=== PATIENT | female | born 1945 | race Caucasian/White ===

== ENCOUNTER 2022-10-08 07:31 | Emergency (ER) | payer OTHER ==
[~2022-10-08] VITALS: Ht 157.5 cm; Wt 68.0 kg
[2022-10-08 07:39] VITALS: BP_SYST 151
--- NOTE | 2022-10-08 07:57 | NUR ---
PT TAKEN TO C/T SCAN AT THIS TIME.
[2022-10-08] MEDS ORDERED: IBUPROFEN 600 MG TABLET PO ONE (08:00)
--- NOTE | 2022-10-08 08:15 | NUR ---
PT BACK FROM CT SCAN AND PLACED ON MONITOR.
--- NOTE | 2022-10-08 08:46 | NUR ---
MOTRIN PO GIVEN AND TOLERATED WELL.
[2022-10-08] MEDS ORDERED: ACYC-133 PO ×3 (08:53→09:07)
[2022-10-08] MEDS ORDERED: NAPR-688 PO ×3 (08:53→09:07)
[2022-10-08] MEDS ORDERED: CEPH-548 PO ×3 (08:53→09:07)
--- NOTE | 2022-10-08 09:00 | NUR ---
DR. HINTON AT BEDSIDE TO POC.
--- NOTE | 2022-10-08 09:18 | NUR ---
Patient given written and verbal discharge instructions and verbalizes understanding. ER MD discussed with patient the results and treatment provided. Patient in stable condition. ID arm band removed. IV catheter removed intact and dressing applied, no active bleeding. Rx of ACYCLOVIR, ROCEPHIN, NAPROXEN given. Patient educated on pain management and to follow up with PMD. Pain Scale 0/10. Opportunity for questions provided and answered. Medication side effect fact sheet provided.
[2022-10-08 09:32] VITALS: BP_SYST 134
--- NOTE | 2022-10-08 09:40 | NUR ---
PATIENT TAKEN OUT TO UBER BY STUDENTS
== END 2022-10-08 09:18 | disposition home or self-care (01) ==
LOC: SED 07:31 → EDBD 07:31 → SED 09:18
DX: L03.211 Cellulitis of face (principal); R22.0 Localized swelling, mass and lump, head; I10 Essential (primary) hypertension; Z79.899 Other long term (current) drug therapy
CPT/HCPCS: 70450-TC; 70486-TC; 76376; 99284

== ENCOUNTER 2023-10-24 07:43 | Emergency (ER) | payer OTHER ==
[~2023-10-24] VITALS: Ht 160 cm; Wt 82.6 kg
[~2023-10-24 07:43] MED LIST: ACYC-133 PO; CEPH-548 PO; NAPR-688 PO
[2023-10-24 08:04] VITALS: BP_SYST 164; PULSE 105; RESP 16; TEMP 98.6; O2SAT 96
[2023-10-24 08:37] LABS: BILIRUBIN,URINE 1+ (NEGATIVE); COLOR,URINE YELLOW (YELLOW); GLUCOSE,URINE NEGATIVE (NEGATIVE); KETONES,URINE TRACE (NEGATIVE); LEUKOCYTE ESTERASE ,URINE 1+ (NEGATIVE); NITRITE, URINE POSITIVE (NEGATIVE); PROTEIN URINE 1+ (NEGATIVE)
[2023-10-24 08:43] LABS: BASOPHILS # (AUTO) 0.1 K/uL (0.0-0.2); BASOPHILS % (AUTO) 1.2 % (0.0-2.0); EOSINOPHILS # (AUTO) 0.1 K/uL (0.0-0.4); EOSINOPHILS % (AUTO) 1.6 % (0.0-4.0); HEMATOCRIT 35.6 % (36-48); HEMOGLOBIN 11.6 g/dL (12.0-16.0); LYMPHOCYTES # (AUTO) 1.4 K/uL (1.0-5.5); LYMPHOCYTES % (AUTO) 27.9 % (20.5-51.5); MEAN CORPUSCULAR HEMOGLOBIN 26 pg (27-31); MEAN CORPUSCULAR HGB CONC 33 % (32-36); MEAN CORPUSCULAR VOLUME 78 fL (79.0-98.0); MONOCYTES # (AUTO) 0.4 K/uL (0.0-1.0); MONOCYTES % (AUTO) 8.3 % (1.7-9.3); PLATELET COUNT (AUTO) 187 K/uL (130-430); RED BLOOD CELL COUNT(AUTO) 4.57 MIL/uL (4.2-6.2); RED CELL DISTRIBUTION WIDTH 14.2 % (9.0-15.0)
[2023-10-24 08:47] LABS: BLOOD, URINE TRACE (NEGATIVE); CLARITY/URINE HAZY (CLEAR)
[2023-10-24 08:47] LABS: ANION GAP 7 (5-15); CALCIUM 9.2 mg/dL (8.4-11.0); CARBON DIOXIDE 29 mmol/L (23-29); CHLORIDE 105 mmol/L (98-107); CREATININE 0.67 mg/dL (0.55-1.30); GLUCOSE 109 mg/dL (74-106); POTASSIUM 3.9 mmol/L (3.5-5.1); SODIUM SERUM 141 mmol/L (136-145); UREA NITROGEN, BLOOD 19 mg/dL (8-21)
[2023-10-24 08:53] LABS: BACTERIA,URINE MODERATE /HPF (None Seen)
[2023-10-24] MEDS ORDERED: CEPH250C PO (09:09)
[2023-10-24 09:15] VITALS: BP_SYST 11; PULSE 86; RESP 16; TEMP 98.4; O2SAT 96
== END 2023-10-24 10:56 | disposition home or self-care (01) ==
LOC: SED 07:43
DX: N39.0 Urinary tract infection, site not specified (principal); M79.10 Myalgia, unspecified site; R10.31 Right lower quadrant pain; I10 Essential (primary) hypertension; Z79.899 Other long term (current) drug therapy
CPT/HCPCS: 36415; 80048; 81000; 81001; 81015; 85025; 87086; 99283